=== PATIENT | male | born 1960 | race Caucasian/White ===

== ENCOUNTER 2020-08-27 13:10 | Day surgery (SDC) | payer BC, SELFPAY ==
[~2020-08-27] VITALS: Ht 182.9 cm; Wt 72.2 kg
[2020-08-27] MEDS ORDERED: B-121000 MC7 (13:24)
[2020-08-27] MEDS ORDERED: CENTRUM SILVER1 EAC2 (13:24)
[2020-08-27] MEDS ORDERED: IBU800 MG (13:25)
[2020-08-27] MEDS ORDERED: TRAM50 (13:25)
[2020-08-27] MEDS ORDERED: ERGO50000 (13:26)
== END 2020-08-27 15:00 | disposition home or self-care (01) ==
LOC: ORSCSDS 13:10
PROVIDERS: Surgery
PROC: 0DBK8ZX Excision of Ascending Colon, Via Natural or Artificial Opening Endoscopic, Diagnostic (ICD-10-PCS; principal; 2020-08-27 14:15)
PROC: 0DB58ZX Excision of Esophagus, Via Natural or Artificial Opening Endoscopic, Diagnostic (ICD-10-PCS; principal; 2020-08-27 14:15)
DX: R19.4 Change in bowel habit (principal); K52.9 Noninfective gastroenteritis and colitis, unspecified; K21.00 Gastro-esophageal reflux disease with esophagitis, without bleeding; K57.30 Diverticulosis of large intestine without perforation or abscess without bleeding; F17.210 Nicotine dependence, cigarettes, uncomplicated
CPT/HCPCS: 88305; J2704; J7120